=== PATIENT | male | born 1970 | race Caucasian/White ===

== ENCOUNTER 2019-11-29 14:17 | Emergency (ER) | payer SELFPAY ==
[2019-11-29 14:20] VITALS: BP 166/96; PULSE 100; RESP 18; TEMP 36.5; O2SAT 98
--- NOTE | 2019-11-29 14:38 | W.ED.GENAD ---
Discharge Plan Disposition Patient Disposition: HOME Condition: Stable Discharge Details Chief Complaint: Vascular Clinical Impression: Cellulitis Primary Care Provider: Roscoe Jordan ED Provider: Kimmy Lewis Home Meds and New Rx's Prescriptions: New clindamycin HCl 300 mg capsule 300 mg PO BID 7 Days Qty: 14 RF: 0 Continued trazodone 50 MG tablet 50 mg PO HS 30 Days Qty: 30 RF: 3 citalopram 10 MG tablet 10 mg PO DAILY 30 Days Qty: 30 RF: 4 Permethrin 60 GM CREAM..G. 60 gm Topical ONCE 1 Days Qty: 1 RF: 1 Discharge Instructions Instructions: Cellulitis (ED) Additional Instructions: Follow up with primary care provider in 3-5 days. Return to ED sooner if any worsening or concerns. Return sooner if any increasing redness or swelling or tenderness. Please take Tylenol or Ibuprofen with food every 4-6 hours as needed for pain and swelling. Take antibiotics as directed. Make sure you take all 7 days of antibiotics. Referrals: Roscoe Jordan DO [Primary Care Provider] - Medical Decision Making 48-year-old male presents with rash and tenderness to his left posterior thigh. He does have a history of DVT. He denies any trauma although there are 2 scabs noted to the lesion on his calf. He also has a red streak noted to his dorsal side of his left thigh. He is a smoker. Denies any chest pain or shortness of breath. No swelling noted to his lower extremities. No recent long trips. Does not take aspirin or any blood thinners. 1446: CBC, BMP, and ultrasound venous Doppler ordered to rule out DVT versus cellulitis. 1531: Discussed preliminary ultrasound result with Matheus Brightkit she reports no DVT no superficial thrombus phlebitis. There is a left inguinal swollen lymph node and some dilated vessels around the area of erythema they are compressible. This indicates more cellulitic changes versus thrombosis. 1552: Erythemic edges marked and timed and dated. Patient given instructions to observe red streaks over the next 2 to 3 days. Strict return instructions given, verbalized understanding. Patient given Rocephin IV here in department will send home on clindamycin. HPI General Mode of arrival: ambulatory. Date/Time Provider Initiated Documentation: 11/29/19 14:19. Limitations to Documentation: no limitations. Information obtained by: patient. HPI Narrative: 48-year-old male presents with left lower extremity tenderness and erythema. Patient reports that he noticed some tenderness to his left calf yesterday. Denies trauma. Reports subjective fever last night did not take temperature. On exam extremity is tender to the touch there is a area of erythema with 2 scabs noted to the posterior calf. There is also a red streak to the posterior medial thigh. Distal pulses intact. No deformity, crepitus. Related Data Home Medications Medication Instructions Recorded Confirmed citalopram 10 mg PO DAILY 30 Days #30 tab-cap 18 trazodone 50 mg PO HS 30 Days #30 tab-cap 18 clindamycin HCl 300 mg PO BID 7 Days #14 cap 11/29/19 Previous Rx's Medication Instructions Recorded citalopram 10 mg PO DAILY 30 Days #30 tab-cap 18 trazodone 50 mg PO HS 30 Days #30 tab-cap 18 clindamycin HCl 300 mg PO BID 7 Days #14 cap 11/29/19 Allergies Allergy/AdvReac Type Severity Reaction Status Date / Time No Known Allergies Allergy Unverified 11/29/19 14:24 General Stated Complaint: Vascular LEANA: 3 Review of Systems Narrative: Constitutional: Negative for weight loss, alert and oriented, well groomed, normal body habitus, appears comfortable. HEENT: Denies trauma, headaches, blurry vision, nasal discharge, sore throat, trouble swallowing. Chest: Denies chest pain, palpitations, irregular rhythm, hypertension. Respiratory: Denies Shortness of breath, cough, hemoptysis. GI: Denies abdominal pain, nausea, vomiting, diarrhea, constipation. : Denies dysuria, hematuria, flank pain, rectal bleeding. Neuro: Denies dizziness, blurry vision, weakness, syncope, headache or facial numbness. Hematologic: Denies, intolerance to heat or cold, hair loss. Positive history for DVT per patient report. Extremity: Redness, tenderness, rash noted. [facility] Medical History (Updated 11/29/19 @ 15:56 by Kimmy Lewis) DVT (deep venous thrombosis) (Chronic) Social History Smoking/Tobacco Use Status: Current every day Tobacco Type: cigarettes Substance use type: does not use Exam Narrative Exam Narrative: Constitutional: Allert and oriented x3. Appears stated age. Normal body habitus. Head: Normocephalic, no trauma. Eyes: Pupils PERRLA, Red reflex noted, EOM's intact. Eyelids symmetrical withour lesions, discharge, or swelling. ENT: Bilateral TM's WNL, External ear normal to inspection, no mastoid TTP, swelling, or erythema, Nasal turbinates WNL, no nasal discharge. Normal dentition, Posterior pharynx WNL, no exudate. Chest: RRR, Normal S1, S2, distal pulses intact. Resp: Lungs clear to auscultation bilaterally, no wheezes, rales, or rhonchi. Musculoskeletal: Normal gait, 5/5 strength to all four extremities. Skin: Capillary refill 2 sec. Neurologic: Cranial nerves II-XII intact. Alert and oriented x 3. DTR's intact. Hematologic/Lymphatic: no lymphadenopathy. Skin Rashes: rashes noted (Red streak noted up left posterior thigh) patches left dorsal lower leg borders irregular, color with an erythematous base and tender Course Vital Signs Vital signs: Vital Signs Temperature 36.5 C 11/29/19 14:20 Pulse 100 H 11/29/19 14:20 Respiratory Rate 18 11/29/19 14:20 Blood Pressure 166/96 H 11/29/19 14:20 Pulse Oximetry 98 11/29/19 14:20 Temperature 36.5 C 11/29/19 14:20 Temperature Source Skin 11/29/19 14:20 Pulse 100 H 11/29/19 14:20 Respiratory Rate 18 11/29/19 14:20 Respiratory Effort 11/29/19 14:25 Blood Pressure 166/96 H 11/29/19 14:20 Blood Pressure Position Sitting 11/29/19 14:20 Pulse Oximetry 98 11/29/19 14:20 Oxygen Delivery Method Room Air 11/29/19 14:20 Oxygen Flow Rate 0 11/29/19 14:20 Pain Level 7 11/29/19 14:20
[2019-11-29 14:40] VITALS: RESP 16
[2019-11-29] MEDS: Normal Saline Flush 10 ML SYR IVP (14:50)
--- NOTE | 2019-11-29 14:52 | DI.US_ITS ---
EXAM: US LOWER EXTREMITY VENOUS LT US LOWER EXTREMITY VENOUS LT CLINICAL HISTORY: Swelling, pain. Swelling, pain TECHNIQUE: Ultrasound performed using standard protocol. COMPARISON: No exams were available for comparison FINDINGS: Duplex venous ultrasound was performed according to the usual protocol. The deep veins are freely com pressible throughout and there is normal flow augmentation with manual calf compression. 2D and Doppl er evaluation are unremarkable. IMPRESSION: No evidence of deep venous thrombosis of the lower extremity
[2019-11-29 14:53] LABS: Abs Immature Grans 0.03 k/cumm (0.0-0.09); Absolute Basophil Count 0.03 k/cumm (0.0-0.2); Absolute Eosinophil Count 0.08 k/cumm (0.0-0.7); Absolute Monocyte Count 0.95 k/cumm (0.11-0.7); Absolute Neutrophil Count 5.09 k/cumm (1.2-6.7); Basophils % 0.4; HCT 43.5 % (40.0-50.0); HGB 15.2 g/dL (13.5-17.5); Immature Grans % 0.4 %; Lymphocytes % 21.6; Mean Corp. HGB Concentration 34.9 g/dL (32.0-36.0); Mean Corpuscular Hemoglobin 30.7 pg (27.0-33.0); Mean Corpuscular Volume 87.9 fL (80-95); Mean Platelet Volume 9.5 fL (8.0-11.0); Monocytes % 12.1; Neutrophils % 64.5; Platelet Count 228 x1000/uL (130-400); RBC 4.95 m/cumm (4.50-6.00); RBC Distribution Width 12.1 % (11.8-14.1); White Blood Cell Count 7.88 k/cumm (4.4-10.8)
[2019-11-29 15:00] LABS: Anion Gap 10.1 mmol/L (3-11); BUN 7 mg/dL (7-18); CO2 26.9 mmol/L (21.0-32.0); CREATININE 0.89 mg/dL (0.70-1.30); Chloride 100 mmol/L (98-107); Glucose 127 mg/dL (74-106); Sodium 137 mmol/L (136-145)
[2019-11-29] MEDS: Ketorolac 15 MG/ML VIAL IVP (16:00)
[2019-11-29] MEDS: cefTRIAXone 1 GM/50 ML BAG IVPB (16:00)
[2019-11-29 16:01] VITALS: BP 125/80; PULSE 88; RESP 16; TEMP 37.1; O2SAT 97
== END 2019-11-29 16:14 | disposition home or self-care (01) ==
PROVIDERS: Emergency Provider Registered Nurse Emergency; PCP Family Medicine
DX: L03.116 Cellulitis of left lower limb (principal); Z86.718 Personal history of other venous thrombosis and embolism; F17.210 Nicotine dependence, cigarettes, uncomplicated
CPT/HCPCS: 80048; 96365; 96375; 99285; 85025; 93971; 99284; J0696; J1885